=== PATIENT | female | born 1930 | race Caucasian/White ===

== ENCOUNTER 2017-02-11 14:56 | Inpatient (IN) | payer MEDICARE ==
[~2017-02-11] VITALS: Ht 147.3 cm; Wt 63.0 kg
--- NOTE | 2017-02-11 15:30 | NUR ---
Patient transferred to bed 4. RN evaluating patient at bedside.
[2017-02-11 15:35] VITALS: BP 136/99
--- NOTE | 2017-02-11 15:58 | NUR ---
PATIENT BIBA DUE TO SP FALL;PT LANDED ON HER BUTT.C/O RT HIP PAIN;DENIES HITTING HER HEAD/LOC;DENIES N/V/D; SKIN IS PINK/WARM/DRY; AAOX4 WITH EVEN AND STEADY GAIT; LUNGS CLEAR BL; HR EVEN AND REGULAR; PT DENIES ANY FEVER, CP, SOB, OR COUGH AT THIS TIME; PATIENT STATES PAIN OF 8/10 AT THIS TIME;PATIENT POSITIONED FOR COMFORT; HOB ELEVATED; BEDRAILS UP X2; BED DOWN. ALL MONITORS IN PLACED;ER MD MADE AWARE OF PT STATUS.
[2017-02-11] MEDS ORDERED: SYN.075 PO (15:59)
[2017-02-11] MEDS ORDERED: LOVA40TA4 PO (15:59)
[2017-02-11] MEDS ORDERED: MIRT30TA PO (15:59)
[2017-02-11] MEDS ORDERED: [UNRECOGNIZED DRUG - CODE] PO (15:59)
[2017-02-11] MEDS ORDERED: KETOROLAC 30 MG/ML VIAL IVP ONE (16:05)
[2017-02-11] MEDS ORDERED: NACL 0.9% 500 ML IV ONE (16:05)
[2017-02-11 16:38] LABS: HEMATOCRIT 41.5 % (36-48); HEMOGLOBIN 13.5 g/dL (12.0-16.0); MEAN CORPUSCULAR HEMOGLOBIN 29 pg (27-31); MEAN CORPUSCULAR HGB CONC 33 g/dL (33-37); MEAN CORPUSCULAR VOLUME 89 fL (80-94); PLATELET COUNT (AUTO) 259 K/uL (140-450); RED BLOOD CELL COUNT(AUTO) 4.64 MIL/uL (4.20-5.40); RED CELL DISTRIBUTION WIDTH 14.5 % (11.6-13.7)
[2017-02-11 16:51] LABS: ANION GAP 13.3 (8-16); CARBON DIOXIDE 28.6 mmol/L (21-32); CHLORIDE 104 mmol/L (98-107); CREATININE 0.9 mg/dL (0.6-1.3); GLUCOSE 113 mg/dL (74-106); POTASSIUM 3.9 mmol/L (3.5-5.1); SODIUM SERUM 142 mmol/L (136-145); UREA NITROGEN, BLOOD 31 mg/dL (7-18)
[2017-02-11 16:57] LABS: ALBUMIN 3.5 g/dL (3.4-5.0); ASPARTATE AMINOTRANSFERASE 19 U/L (15-37); PROTHROMBIN TIME 10.9 secs (10.8-13.4); TOTAL BILIRUBIN 0.3 mg/dL (0.0-1.0)
--- NOTE | 2017-02-11 17:04 | NUR ---
XRAY AT BEDSIDE.
[2017-02-11 17:13] LABS: LYMPHOCYTES % (MANUAL) 15 % (20-46)
[2017-02-11 17:14] LABS: EOSINOPHILS % (MANUAL) 1 % (0-4); MONOCYTES % (MANUAL) 4 % (5-12)
--- NOTE | 2017-02-11 17:57 | NUR ---
IV GOT INFILTRATED;STOP IVF;TRIED TO START ANOTHER LINE BUT DAUGHTER REFUSES;
--- NOTE | 2017-02-11 18:20 | NUR ---
DAUGHTER DON'T WANT HER MOTHER TO BE ADMITTED HERE IN [facility];PAULINO NURSE STEFFEN TALKED TO DAUGHTER;TALKED TO DR DAILY.
--- NOTE | 2017-02-11 18:27 | NUR ---
DR DAILY AT BEDSIDE.
[2017-02-11] MEDS: NACL 0.9% 1,000 ML IV SCH (18:37)
[2017-02-11] MEDS ORDERED: ONDANSETRON 4 MG/2 ML VIAL IVP PRN (18:40)
[2017-02-11] MEDS ORDERED: HYDROcodone/APAP 7.5/325 MG 1 TAB PO PRN (18:40)
[2017-02-11] MEDS ORDERED: ACETAMINOPHEN 325 MG TAB PO PRN (18:40)
[2017-02-11] MEDS ORDERED: MORPHINE SULFATE 2 MG/ML SYR IVP PRN (18:40)
[2017-02-11 19:18] LABS: CHOL/HDL RATIO 5.2 (1-4.5); FREE T4 (FREE THYROXINE) 0.81 ng/dL (0.76-1.46); PHOSPHORUS 3.8 mg/dL (2.5-4.9); THYROID STIMULATING HORMONE 11.56 uIU/mL (0.34-3.74)
--- NOTE | 2017-02-11 19:21 | NUR ---
Pt report given to ILA ELLIS. Transfer of care at this time.
--- NOTE | 2017-02-11 19:45 | NUR ---
GOT REPORT FROM CALEB, PT. RESTING IN BED, NO S/SX OF DISTRESS AT THIS TIME
--- NOTE | 2017-02-11 19:55 | NUR ---
RECEIVED REPORT FROM ER. PATIENT A&OX1. PATIENT HAS HISTORY OF DEMENTIA, UNABLE TO ANSWER ADMITTING QUESTIONS, DAUGHTER HAS POA. DAUGHTER THOMAS PROVIDED ADMISSION INFORMATION. IV SITE PATENT AND INTACT. SECOND IV SITE INFILTRATED IN ER, IV TAKEN OUT, TIP INTACT. PATIENT ON 3L O2 VIA NC. PATIENT ORIENTED TO UNIT. REINFORCEMENT NEEDED. NO SIGNS OR SYMPTOMS OF ACUTE DISTRESS NOTED. WILL CONTINUE TO MONITOR.
[2017-02-11 20:00] VITALS: BP 149/86
--- NOTE | 2017-02-11 20:01 | NUR ---
Patient will be admitted to care of DR FRITZ. Admited to TELE. Will go to room. Belongings list completed. Report to .
[2017-02-11] MEDS: MIRTAZAPINE 15 MG TAB PO SCH (22:26)
[2017-02-11] MEDS: DOCUSATE SODIUM 100 MG GELCAP PO SCH (22:26)
[2017-02-11] MEDS: DONEPEZIL 10 MG TAB PO SCH (22:27)
[2017-02-11] MEDS ORDERED: MORPHINE SULFATE 4 MG/ML SYR IVP PRN (23:30)
[2017-02-11] MEDS ORDERED: HYDROcodone/APAP 10/325 MG 1 TAB TAB PO PRN (23:30)
--- NOTE | 2017-02-11 23:45 | NUR ---
PATIENT AWAKE IN BED. FLACC 0. PATIENT TWISTING O2 LINES AND PULLING AT IV SITE, WRAPPED IN THIN GAUZE. PATIENT A&OX1. PATIENT NEEDS REINFORCEMENT TO KEEP NASAL CANNULA ON. NO SIGNS OR SYMPTOMS OF ACUTE DISTRESS NOTED. CALL LIGHT WITHIN REACH. WILL CONTINUE TO MONITOR.
[2017-02-12] VITALS: BP 139/74
--- NOTE | 2017-02-12 02:15 | NUR ---
PATIENT RESTING IN BED. FLACC 0. NO SIGNS OR SYMPTOMS OF ACUTE DISTRESS NOTED. WILL CONTINUE TO MONITOR.
[2017-02-12 04:00] VITALS: BP 106/58
--- NOTE | 2017-02-12 05:50 | NUR ---
SPOKE TO DAUGHTER THOMAS ON THE PHONE FOR AN UPDATE ON MOTHERS CONDITION. DAUGHTER WILL BE IN LATER IN THE MORNING.
[2017-02-12] MEDS: LEVOTHYROXINE 0.075 MG TAB PO SCH (06:37)
--- NOTE | 2017-02-12 06:59 | NUR ---
PATIENT HAS BEEN SCREENED AND CATEGORIZED LOW NUTRITION RISK. PATIENT WILL BE SEEN WITHIN 7 DAYS OF ADMISSION. 02/17/17 LUANN MALDONADO MS, RDN Addendum: 02/13/17 at [address] PATIENT HAS BEEN RESCREENED AND RECATEGORIZED MODERATE NUTRITION RISK. PATIENT WILL BE SEEN WITHIN 3-5 DAYS OF ADMISSION. 02/14/17 - 02/16/[address]
--- NOTE | 2017-02-12 07:26 | NUR ---
ENDORSED PLAN OF CARE TO AM RN. PATIENT IN STABLE CONDITION. NO SIGNS OR SYMPTOMS OF ACUTE DISTRESS NOTED. CALL LIGHT WITHIN REACH. SAFETY MEASURES ENSURED.
--- NOTE | 2017-02-12 07:27 | NUR ---
RECEIVED REPORT FROM LINSEED OIL REFINER NURSE. PATIENT IN STABLE CONDITION. NO DISTRESS NOTED. FLACC =0. AAOX1, CALM, COOPERATIVE, SKIN COLOR APPROPRIATE TO ETHNICITY, WARM TO TOUCH. RESPIRATIONS EVEN, UNLABORED, ON ROOM AIR FOR NOW WITH O2 SAT AT 98%. IV SITE INTACT, PATENT, AND INFUSING IVF ORDERS. HAS BUCKS TRACTION IN PLACE ON RIGHT LEG WITH 5 LBS WEIGHT. LUNGS CTA ON ALL LOBES. HAS RED SKIN SPOTS ON B/L UE, BUT IS INTACT. ABDOMEN SOFT, NON-DISTENDED. REVIEWED PLAN OF CARE WITH PATIENT. PATIENT VERBALIZED UNDERSTANDING. SAFETY MEASURES IN PLACE, CALL LIGHT WITHIN REACH, FALL PRECAUTIONS IN PLACE. WILL CONTINUE TO MONITOR.
[2017-02-12 08:00] VITALS: BP 149/87
--- NOTE | 2017-02-12 08:00 | NUR ---
DR. BEAUCHAMP AT BEDSIDE REVIEWING PLAN OF CARE WITH PATIENT AND DAUGHTER AT BEDSIDE. DAUGHTER WISHES TO TRANSFER PATIENT TO [facility] TO PERFORM RIGHT HIP FRACTURE SURGERY. DR. BEAUCHAMP OK WITH DAUGHTER'S WISHES. WILL CONTINUE TO MONITOR.
[2017-02-12 08:38] LABS: BASOPHILS # (AUTO) 0.3 K/uL (0.00-0.22); BASOPHILS % (AUTO) 2.6 % (0.0-2.0); EOSINOPHILS # (AUTO) 0.3 K/uL (0-0.4); EOSINOPHILS % (AUTO) 2.9 % (0.0-4.0); HEMOGLOBIN 12.9 g/dL (12.0-16.0); LYMPHOCYTES # (AUTO) 1.7 K/uL (2.5-16.5); LYMPHOCYTES % (AUTO) 15.5 % (20.5-51.1); MEAN CORPUSCULAR HEMOGLOBIN 30 pg (27-31); MEAN CORPUSCULAR HGB CONC 33 g/dL (33-37); MEAN CORPUSCULAR VOLUME 89 fL (80-94); MONOCYTES # (AUTO) 0.8 K/uL (0.8-1.0); MONOCYTES % (AUTO) 7.1 % (1.7-9.3); NEUTROPHILS # (AUTO) 8.1 K/uL (1.8-7.7); NEUTROPHILS % (AUTO) 71.9 % (42.2-75.2); PLATELET COUNT (AUTO) 209 K/uL (140-450); RED BLOOD CELL COUNT(AUTO) 4.37 MIL/uL (4.20-5.40); RED CELL DISTRIBUTION WIDTH 14.3 % (11.6-13.7); WHITE BLOOD COUNT (AUTO) 11.2 K/uL (4.8-10.8)
[2017-02-12] MEDS: DOCUSATE SODIUM 100 MG GELCAP PO SCH ×2 (09:00→20:38)
[2017-02-12] MEDS ORDERED: NON-FORMULARY ITEM (Memantine HCl (Namenda Xr) 28 MG) PO SCH (09:00)
[2017-02-12] MEDS ORDERED: NON-FORMULARY ITEM (Lovastatin 40 MG) PO SCH (09:00)
[2017-02-12] MEDS: PANTOPRAZOLE 40 MG INJ VIAL IVP SCH (09:07)
[2017-02-12 09:08] LABS: ANION GAP 11.7 (8-16); CARBON DIOXIDE 26.1 mmol/L (21-32); CHLORIDE 104 mmol/L (98-107); CREATININE 0.8 mg/dL (0.6-1.3); GLUCOSE 98 mg/dL (74-106); POTASSIUM 3.8 mmol/L (3.5-5.1); SODIUM SERUM 138 mmol/L (136-145); UREA NITROGEN, BLOOD 23 mg/dL (7-18)
[2017-02-12] MEDS: NACL 0.9% 1,000 ML IV SCH ×2 (09:08→14:37)
--- NOTE | 2017-02-12 09:15 | NUR ---
PATIENT LYING IN BED WITH FAMILY MEMBERS AT BEDSIDE. NO DISTRESS NOTED. FLACC 0. RESPIRATIONS EVEN, UNLABORED, ON ROOM AIR WITH O2 SAT 97%. SCHEDULED MEDICATIONS DUE GIVEN. SAFETY MEASURES IN PLACE, CALL LIGHT WITHIN REACH, BUCKS TRACTION ON RIGHT LEG IN PLACE WITH 5 LBS WEIGHT. WILL CONTINUE TO MONITOR.
[2017-02-12 09:19] LABS: MAGNESIUM 1.9 mg/dL (1.8-2.4); PHOSPHORUS 3.2 mg/dL (2.5-4.9)
--- NOTE | 2017-02-12 10:40 | NUR ---
PATIENT LYING IN BED COMFORTABLE WITH FAMILY MEMBERS AT BEDSIDE. ASSISTED INVOICE CONTROL CLERK TO CLEAN UP PATIENT. SAFETY MEASURES IN PLACE, CALL LIGHT WITHIN REACH, FALL PREVENTIONS IN PLACE. WILL CONTINUE TO MONITOR.
--- NOTE | 2017-02-12 11:00 | NUR ---
DR. FRITZ AT BEDSIDE REVIEWING PLAN OF CARE WITH PATIENT AND DAUGHTER AT BEDSIDE. DAUGHTER CHANGED HER MIND AND WANTS TO PERFORM THE RIGHT HIP SURGERY IN [facility] INSTEAD OF TRANSFERRING PATIENT TO [facility]. MD MADE AWARE. CT SCAN OF PELVIS WITHOUT CONTRAST TO BE SCHEDULED LATER TODAY AND CONSENTS FOR SURGERY TO BE SIGNED BY DAUGHTER LATER TODAY WHEN DAUGHTER RETURNS. SAFETY MEASURES IN PLACE, CALL LIGHT WITHIN REACH. WILL CONTINUE TO MONITOR.
[2017-02-12] MEDS ORDERED: MEMANTINE 10 MG TAB PO SCH (11:30)
[2017-02-12 12:00] VITALS: BP 137/88
--- NOTE | 2017-02-12 12:08 | NUR ---
PATIENT LYING IN BED SLEEPING. AROUSABLE BY VOICE. NO DISTRESS NOTED. RESPIRATIONS EVEN, UNLABORED, ON ROOM AIR WITH O2 SAT AT 96%. WILL CONTINUE TO MONITOR.
--- NOTE | 2017-02-12 13:00 | NUR ---
PATIENT LYING IN BED COMFORTABLY. CONDITION UNCHANGED. NO DISTRESS NOTED. FLACC 0. MEDICATIONS DUE GIVEN. SAFETY MEASURES IN PLACE, CALL LIGHT WITHIN REACH. WILL CONTINUE TO MONITOR.
--- NOTE | 2017-02-12 13:15 | NUR ---
RADIOLOGIST HERE ON UNIT TO TAKE PATIENT FOR A CT SCAN OF PELVIS. DISCONNECTED PATIENT FROM IVF, AND REMOVED 5 LBS WEIGHT ON BUCKS TRACTION FOR CT SCAN. WILL PLACE BACK ON WHEN PATIENT BACK ON UNIT. WILL CONTINUE TO MONITOR.
--- NOTE | 2017-02-12 13:43 | NUR ---
PATIENT BACK FROM CT SCAN. IN STABLE CONDITION. NO DISTRESS NOTED. RECONNECTED PATIENT BACK ON IVF AND BUCKS TRACTION PER MD ORDERS. INSTRUMENTATION ENGINEERING TECHNICIAN ASSISTING PATIENT ON FEEDING FOR LUNCH. SAFETY MEASURES IN PLACE, CALL LIGHT WITHIN REACH, FALL PREVENTIONS IN PLACE. WILL CONTINUE TO MONITOR.
--- NOTE | 2017-02-12 15:05 | NUR ---
PATIENT LYING IN BED SLEEPING. AROUSABLE BY VOICE. FLACC 0. NO DISTRESS NOTED. RESPIRATIONS EVEN, UNLABORED, ON ROOM AIR. CONDITION UNCHANGED. ASSISTED CHOPPER OPERATOR ON CLEANING PATIENT AND REPOSITIONING. SAFETY MEASURES IN PLACE, CALL LIGHT WITHIN REACH, FALL PREVENTIONS IN PLACE, RUBALCAVA'S TRACTION IN PLACE, IV SITE INTACT, PATENT AND INFUSING. WILL CONTINUE TO MONITOR.
[2017-02-12 16:00] VITALS: BP 130/81
--- NOTE | 2017-02-12 16:30 | NUR ---
PATIENT SITTING IN BED WATCHING TV. NO DISTRESS NOTED. RESPIRATIONS EVEN, UNLABORED ON ROOM AIR. FLACC 0. SAGASTUME CATHETER INSERTED PER MD ORDERS. ASSISTED HYDROCRANE OPERATOR CLEAN UP AND REPOSITION PATIENT. PATIENT TOLERATED PROCEDURE WELL. SAFETY MEASURES IN PLACE, CALL LIGHT WITHIN REACH, SAGASTUME CATHETER DRAINING CLOUDY, ODOROUS URINE, BUCKS TRACTION IN PLACE. WILL CONTINUE TO MONITOR.
[2017-02-12 17:41] LABS: APPEARANCE,URINE SL CLOUDY (CLEAR); BILIRUBIN,URINE NEGATIVE (NEGATIVE); BLOOD, URINE 3+ (NEGATIVE); COLOR,URINE YELLOW (YELLOW); LEUKOCYTE ESTERASE ,URINE 3+ (NEGATIVE); NITRITE, URINE NEGATIVE (NEGATIVE); PH,URINE 6.5 (5.0-9.0); UGLUCOSE NEGATIVE (NEGATIVE)
[2017-02-12 17:50] LABS: RBC,URINE 11-20 (MOD) /HPF (0-5); URINE AMORPHOUS URATE 1+ /HPF (None Seen); WBC,URINE 20-60 /HPF (0-5)
--- NOTE | 2017-02-12 18:00 | NUR ---
PATIENT LYING IN BED SLEEPING. NO DISTRESS NOTED. CONDITION UNCHANGED. RESPIRATIONS EVEN, UNLABORED ON ROOM AIR. SAFETY MEASURES IN PLACE, CALL LIGHT WITHIN REACH. WILL CONTINUE TO MONITOR.
--- NOTE | 2017-02-12 19:30 | NUR ---
GAVE REPORT TO POWER SYSTEM DISPATCHER NURSE FOR CONTINUITY OF CARE. PATIENT IN STABLE CONDITION.
--- NOTE | 2017-02-12 19:31 | NUR ---
RECEIVED HANDOFF REPORT FROM AM RN. PATIENT A&OX1. PATIENT IV SITE PATENT AND INTACT. FLACC 0. SAGASTUME CATHETER PATENT AND INTACT. URINE STRAW COLORED AND CLEAR. 600ML NOTED. NO SIGNS OR SYMPTOMS OF ACUTE DISTRESS NOTED. SAFETY MEASURES ENSURED. WILL CONTINUE TO MONITOR.
[2017-02-12 20:00] VITALS: BP 130/89
[2017-02-12] MEDS: MEMANTINE 10 MG TAB PO SCH (20:48)
[2017-02-12] MEDS: SIMVASTATIN 20 MG TAB PO SCH (20:49)
[2017-02-12] MEDS: MIRTAZAPINE 15 MG TAB PO SCH (20:49)
[2017-02-12] MEDS: DONEPEZIL 10 MG TAB PO SCH (20:49)
--- NOTE | 2017-02-12 20:57 | NUR ---
PM MEDS GIVEN WITH EDUCATION. PATIENT TOLERATED WELL IN APPLESAUCE. FLACC 0. REINFORCEMENT NEEDED FOR TEACHING. NO SIGNS OR SYMPTOMS OF ACUTE DISTRESS NOTED. WILL CONTINUE TO MONITOR.
[2017-02-13] VITALS (10 sets, daily range): BP systolic 122–152; BP diastolic 67–97
--- NOTE | 2017-02-13 00:17 | NUR ---
PATIENT RESTING IN BED. FLACC 0. NO SIGNS OR SYMPTOMS OF ACUTE DISTRESS NOTED. SAFETY MEASURES ENSURED. WILL CONTINUE TO MONITOR.
--- NOTE | 2017-02-13 04:31 | NUR ---
PATIENT RESTING IN BED. NO SIGNS OR SYMPTOMS OF ACUTE DISTRESS NOTED. FLACC 0. SAFETY MEASURES ENSURED. WILL CONTINUE TO MONITOR.
--- NOTE | 2017-02-13 05:41 | NUR ---
SPOKE WITH DAUGHTER REGARDING TIME OF SURGERY. TIME IS STILL UNKNOWN , SHE WILL COME TO SIGN DNR FORM PRIOR TO SURGERY.
[2017-02-13] MEDS: LEVOTHYROXINE 0.075 MG TAB PO SCH (06:43)
[2017-02-13 06:50] LABS: BASOPHILS # (AUTO) 0.3 K/uL (0.00-0.22); BASOPHILS % (AUTO) 2.4 % (0.0-2.0); EOSINOPHILS # (AUTO) 0.3 K/uL (0-0.4); EOSINOPHILS % (AUTO) 2.6 % (0.0-4.0); HEMATOCRIT 39.5 % (36-48); LYMPHOCYTES # (AUTO) 1.7 K/uL (2.5-16.5); LYMPHOCYTES % (AUTO) 14.6 % (20.5-51.1); MEAN CORPUSCULAR HEMOGLOBIN 30 pg (27-31); MEAN CORPUSCULAR HGB CONC 33 g/dL (33-37); MEAN CORPUSCULAR VOLUME 89 fL (80-94); MONOCYTES % (AUTO) 8.7 % (1.7-9.3); NEUTROPHILS # (AUTO) 8.3 K/uL (1.8-7.7); NEUTROPHILS % (AUTO) 71.7 % (42.2-75.2); PLATELET COUNT (AUTO) 194 K/uL (140-450); RED BLOOD CELL COUNT(AUTO) 4.41 MIL/uL (4.20-5.40); RED CELL DISTRIBUTION WIDTH 14.3 % (11.6-13.7); WHITE BLOOD COUNT (AUTO) 11.6 K/uL (4.8-10.8)
[2017-02-13 07:19] LABS: ANION GAP 8.7 (8-16); CHLORIDE 105 mmol/L (98-107); CREATININE 0.9 mg/dL (0.6-1.3); GLUCOSE 103 mg/dL (74-106); POTASSIUM 3.7 mmol/L (3.5-5.1); SODIUM SERUM 138 mmol/L (136-145); UREA NITROGEN, BLOOD 16 mg/dL (7-18)
[2017-02-13 07:23] LABS: MAGNESIUM 1.9 mg/dL (1.8-2.4); PHOSPHORUS 3.7 mg/dL (2.5-4.9)
--- NOTE | 2017-02-13 07:41 | NUR ---
ENDORSED PLAN OF CARE TO AM RN. PATIENT IN STABLE CONDITION. NO SIGNS OR SYMPTOMS OF ACUTE DISTRESS NOTED. SAFETY MEASURES ENSURED.
--- NOTE | 2017-02-13 07:42 | NUR ---
RECEIVED REPORT FROM THE LOGISTICS LOSS PREVENTION MANAGER NURSE AT BEDSIDE FOR CONTINUITY OF CARE. PT IS AWAKE AND ORIENTED X 2. INTRODUCED MYSELF AND UPDATED THE BOARD. PT IS IS TO HAVE SURGERY. FINISHED THE OR PREOP CHECK LIST. V/S WITHIN NORMAL RANGE. DENIES PAIN. IV ON L FA 20G NS AT 50ML. SITE WRAPPED IN KERLIX. PT HAS RUBALCAVA'S TRACTION -5LBS. SKIN INTACT. PT IS AWARE SHE IS HAVING PROCEDURE DONE TODAY. DAUGHTER IS HERE. SIGNED POLST. THEY ARE HERE AT PT'S BEDSIDE. SCD IN PLACE ON L LEG, SAGASTUME CATH IN PLACCE W/ 100ML ESTELLE URINE IN BAG. WILL CONTINUE TO MONITOR PT.
[2017-02-13] MEDS: DOCUSATE SODIUM 100 MG GELCAP PO SCH ×2 (08:44→20:43)
[2017-02-13] MEDS: CALCIUM CARB/VIT-D 500 MG/200 IU 1 TAB PO SCH (08:44)
[2017-02-13] MEDS: MEMANTINE 10 MG TAB PO SCH ×2 (08:44→20:43)
[2017-02-13] MEDS: BACLOFEN 10 MG TAB PO SCH ×3 (09:00→16:50)
[2017-02-13] MEDS: PANTOPRAZOLE 40 MG INJ VIAL IVP SCH (09:25)
[2017-02-13] MEDS: NACL 0.9% 1,000 ML IV SCH ×2 (09:28→14:05)
--- NOTE | 2017-02-13 09:30 | NUR ---
HELD ALL MORNING MEDS. NPO FOR SURGERY. ADMINISTERED PROTONIX AND CHANGED NEW IVF. PT SLEEPING. FAMILY AT BEDSIDE WAITING FOR SURGERY. WILL CONTINUE TO MONITOR PT.
[2017-02-13] MEDS ORDERED: ROCURONIUM 50 MG/5 ML VIAL IV ONE (10:09)
[2017-02-13] MEDS ORDERED: ONDANSETRON 4 MG/2 ML VIAL IVP ONE (10:09)
[2017-02-13] MEDS ORDERED: PHENYLEPHRINE 10 MG/ML VIAL IV ONE (10:09)
[2017-02-13] MEDS ORDERED: DESFLURANE 240 ML BTL INH ONE (10:09)
[2017-02-13] MEDS ORDERED: KETOROLAC 30 MG/ML VIAL IVP ONE (10:09)
[2017-02-13] MEDS ORDERED: PROPOFOL 200 MG/20 ML VIAL IV ONE (10:09)
[2017-02-13] MEDS ORDERED: GLYCOPYRROLATE 0.2 MG/ML VIAL IV ONE (10:09)
[2017-02-13] MEDS ORDERED: DEXAMETHASONE 4 MG/ML VIAL IVP ONE (10:09)
--- NOTE | 2017-02-13 11:47 | NUR ---
CALLED OR SCHEDULING. ASKED ABOUT HER SURGERY TIME. 12:30PM. NOTIFIED FAMILY. FAMILY AT BEDSIDE. PT DENIES PAIN AT THIS TIME. WILL CONTINUE TO MONITOR PT.
--- NOTE | 2017-02-13 12:05 | NUR ---
OR NURSES HERE TO TAKE PT TO OR FOR PROCEDURE. FAMILY WENT TO OR WAITING ROOM. REMOVED GLASSES AND PUT THEM IN THE SIDE DRESSER DRAWER. FAMILY AWARE. WILL AWAIT PT'S RETURN.
[2017-02-13] MEDS ORDERED: ceFAZolin 1,000 MG VIAL ONE ×2 (12:38→13:53)
[2017-02-13] MEDS ORDERED: BUPIVACAINE-MPF 0.25% 30 ML VIAL INJ ONE (12:39)
[2017-02-13] MEDS ORDERED: fentaNYL 0.05 MG/ML VIAL ONE (12:45)
[2017-02-13] MEDS ORDERED: ONDANSETRON 4 MG/2 ML VIAL IVP PRN (13:05)
[2017-02-13] MEDS ORDERED: MORPHINE SULFATE 2 MG/ML SYR IVP PRN (13:45)
[2017-02-13] MEDS ORDERED: AMMONIA AROMATIC 1 INHL INH ONE (14:06)
--- NOTE | 2017-02-13 14:20 | NUR ---
CM NOTE INITIAL REVIEW FAXED TO [facility] / FAX# [phone], ATTN: YAN # [phone]
--- NOTE | 2017-02-13 14:35 | NUR ---
PT ARRIVED BACK ON THE UNIT WITH 2 ER NURSES. PT IS STILL VERY DROWSY. V/S WITHIN NORMAL RANGE. ADMINISTERED NC O2 3L. NS IV INFUSING @ 50ML. DENIES PAIN. NOTED THE BANDAGE ON R THIGH/HIP. NO MORE TRACTION. WILL CONTINUE TO MONITOR PT.
--- NOTE | 2017-02-13 17:54 | NUR ---
WITH AROUSAL, PT IS MORE AWAKE AND ORIENTED. DINNER IS HERE. WILL TRY TO GET PT TO EAT SOME DINNER.
--- NOTE | 2017-02-13 19:20 | NUR ---
ENDORSED PT TO THE MAINTENANCE SPECIALIST NURSE. PT IN STABLE CONDITION.
--- NOTE | 2017-02-13 19:25 | NUR ---
RECEIVED FROM AM RN IN BED AWAKE AND ALERT. ON SITTING UP POSITION. S/P HIP ORIFF. DRESSING INTACT. NO BLEEDING. BED ALARM ON. CALL LIGHT WITH IN REACH AND MADE SURE SHE HAS IT. PT. IN ROOM WHERE EASY VISIBILTY TO NSG. OFFICE . NOTED WITH CONFUSION RT DEMENTIA. NEEDS WILL BE ANTICIPATED AND WILL BE MET. TOTAL CARE.
[2017-02-13] MEDS: DONEPEZIL 10 MG TAB PO SCH (20:43)
[2017-02-13] MEDS: MIRTAZAPINE 15 MG TAB PO SCH (20:43)
[2017-02-13] MEDS: SIMVASTATIN 20 MG TAB PO SCH (20:44)
[2017-02-14 00:33] VITALS: BP 110/58
--- NOTE | 2017-02-14 00:35 | NUR ---
PT. VITAL SIGNS TAKEN AND NO COMPLAINTS OF ANY PAIN. ABLE TO WAKE UP EASILY WHEN TOUCHED. PT. DENIES ANY PAIN. WENT BACK TO SLEEP. MADE SURE CALL LIGHT WITH IN REACH. AFEBRILE. DRESSING TO ORIFF INTACT AND NO BLEEDING NOTED.
--- NOTE | 2017-02-14 02:33 | NUR ---
SLEEPING WELL. NO BLEEDING TO ORIF SITE. TELEMETRY MONITORING. CALL LIGHT WITH IN REACH.
--- NOTE | 2017-02-14 04:10 | NUR ---
SLEEPING. NO SOB. NO NOTED RESTLESSNESS. FLACC 0-. IVF SITE INTACT AND NO INFILTRATION . TELEMETRY MONITORING.
[2017-02-14 04:31] VITALS: BP 117/73
[2017-02-14] MEDS: LEVOTHYROXINE 0.075 MG TAB PO SCH (06:12)
[2017-02-14] MEDS: NACL 0.9% 1,000 ML IV SCH ×2 (06:13→14:28)
[2017-02-14 06:19] LABS: BASOPHILS # (AUTO) 0.1 K/uL (0.00-0.22); BASOPHILS % (AUTO) 0.8 % (0.0-2.0); EOSINOPHILS # (AUTO) 0.1 K/uL (0-0.4); EOSINOPHILS % (AUTO) 0.8 % (0.0-4.0); HEMATOCRIT 35.4 % (36-48); HEMOGLOBIN 11.8 g/dL (12.0-16.0); LYMPHOCYTES # (AUTO) 1.4 K/uL (2.5-16.5); LYMPHOCYTES % (AUTO) 9.4 % (20.5-51.1); MEAN CORPUSCULAR HEMOGLOBIN 30 pg (27-31); MEAN CORPUSCULAR HGB CONC 33 g/dL (33-37); MEAN CORPUSCULAR VOLUME 89 fL (80-94); MONOCYTES # (AUTO) 1.4 K/uL (0.8-1.0); MONOCYTES % (AUTO) 9.2 % (1.7-9.3); NEUTROPHILS # (AUTO) 12.4 K/uL (1.8-7.7); NEUTROPHILS % (AUTO) 79.8 % (42.2-75.2); PLATELET COUNT (AUTO) 212 K/uL (140-450); RED BLOOD CELL COUNT(AUTO) 3.99 MIL/uL (4.20-5.40); RED CELL DISTRIBUTION WIDTH 13.9 % (11.6-13.7); WHITE BLOOD COUNT (AUTO) 15.4 K/uL (4.8-10.8)
[2017-02-14 06:43] LABS: CARBON DIOXIDE 28.4 mmol/L (21-32); CHLORIDE 106 mmol/L (98-107); GLUCOSE 122 mg/dL (74-106); POTASSIUM 4.4 mmol/L (3.5-5.1); SODIUM SERUM 140 mmol/L (136-145); UREA NITROGEN, BLOOD 21 mg/dL (7-18)
--- NOTE | 2017-02-14 06:43 | NUR ---
SLEPT WELL THIS SHIFT. NEEDS ANTICIPATED AND MET. TOTAL CARE. PT. ABLE TO WAKE UP WHEN TOUCHED . NO COMPLAINT OF PAIN THIS SHIFT. ORIF RIGHT UPPER THIGH DRESSING INTACT AND NO BLEEDING. TELEMETRY MONITORING.
[2017-02-14 06:54] LABS: PHOSPHORUS 3.9 mg/dL (2.5-4.9)
--- NOTE | 2017-02-14 07:20 | NUR ---
RECEIVED REPORT FROM THE LACROSSE PLAYER NURSE AT BEDSIDE FOR CONTINUITY OF CARE. PT SLEEPING. UPDATED THE BOARD. SAGASTUME CATH IN PLACE. 100ML YELLOW URINE IN BAG. IV ON L FA 20G NS AT 50ML INFUSING. SURGICAL DRESSING ON R THIGH/HIP. NC ON 2L O2. V/S WITHIN NORMAL RANGE. 96% O2 SAT. MD'S ROUNDED. PLAN FOR TODAY. D/C SAGASTUME CATH AND P/T. WILL CONTINUE TO MONITOR PT.
[2017-02-14 08:00] VITALS: BP 125/61
--- NOTE | 2017-02-14 08:00 | NUR ---
WOKE UP PT AND SAT HER UP TO EAT BREAKFAST. PT IS AWAKE. FEEDING HERSELF. WILL CONTINUE TO MONITOR PT.
[2017-02-14] MEDS: PANTOPRAZOLE 40 MG INJ VIAL IVP SCH (08:29)
[2017-02-14] MEDS: BACLOFEN 10 MG TAB PO SCH ×3 (08:30→17:02)
[2017-02-14] MEDS: CALCIUM CARB/VIT-D 500 MG/200 IU 1 TAB PO SCH (08:30)
[2017-02-14] MEDS: MEMANTINE 10 MG TAB PO SCH ×2 (08:30→20:33)
[2017-02-14] MEDS: DOCUSATE SODIUM 100 MG GELCAP PO SCH ×2 (08:30→20:33)
--- NOTE | 2017-02-14 08:43 | NUR ---
ADMINISTERED MORNING MEDS. CRUSHED IN APPLE SAUCE. PT TOLERATED WELL. HELD COLACE. PER NIGHTSHIFT NURSE PT HAD LOOSE STOOLS. WILL CONTINUE TO MONITOR PT.
--- NOTE | 2017-02-14 09:30 | NUR ---
P/T HERE FOR THERAPY. FIRST TIME GETTING UP AFTER SURGERY. PT TOLERATED WELL. AFTERWARDS, SAT PT IN CHAIR NEXT TO BED. DENIES PAIN. NO SIGNS OF DISTRESS. WILL CONTINUE TO MONITOR PT.
--- NOTE | 2017-02-14 11:16 | NUR ---
FAMILY IS HERE. WANTED TO SPEAK TO GILDARDO, ADJUNCT PHYSICAL EDUCATION INSTRUCTOR. CALLED AND REQUESTED GILDARDO TO COME TO THE ROOM AND SPEAK TO FAMILY. NOTIFIED FAMILY THAT SHE IS COMING SOON. PT BACK IN BED. NO SIGNS OF DISCOMFORT. WILL CONTINUE TO MONITOR PT.
[2017-02-14 12:00] VITALS: BP 112/54
--- NOTE | 2017-02-14 12:23 | NUR ---
SPOKE WITH EMILY FROM [facility]. SHE SAID THE DAUGHTER, THOMAS , WANTED [facility] . I CALLED YAN FROM [facility]. SHE SAID THEY ARE NOT CONTRACTED WITH [facility]. I CALLED EMILY AND INFORMED HER. THE DAUGHTER THOMAS AND HER HUISBAND WAS IN THE PATIENT'S ROOM. I INFORMED THEM THAT [facility] IS NOT CONTRACTED WITH [facility]. I GAVE THE DAUGHTER THE LIST OF SNF'S CONTRACTED WITH [facility].
--- NOTE | 2017-02-14 13:06 | NUR ---
ADMINISTERED MED CRUSHED W/ APPLE SAUCE. PT IS EATING LUNCH. NO SIGNS OF DISTRESS. WILL CONTINUE TO MONITOR PT.
--- NOTE | 2017-02-14 15:16 | NUR ---
FAXED [facility]CURRENT REVIEW TO [facility] [phone] PHONE YAN [phone]
[2017-02-14 16:00] VITALS: BP 117/53
--- NOTE | 2017-02-14 17:14 | NUR ---
ADMINISTERED ROCEPHIN AND BACLOFEN, CRUSHED AND MIXED IN APPLE SAUCE. PT TOLERATED WELL. PT IS MORE CONFUSED NOW. TALKING ABOUT HER DAD, " HE'LL BE COMING." STARTED MUMBLING ABOUT SOMETHING AND STARTED TO CRY. WILL CONTINUE TO MONITOR PT.
--- NOTE | 2017-02-14 17:50 | NUR ---
D/C SAAGSTUME CATH. ABOUT 150ML OF YELLOW/ESTELLE URINE IN BAG. PT TOLERATED WELL. DINNER IS HERE. WILL CONTINUE TO MONITOR PT.
--- NOTE | 2017-02-14 19:25 | NUR ---
ENDORSED PT TO THE MANAGER PHP NURSE AT BEDSIDE FOR CONTINUITY OF CARE. PT IN STABLE CONDITION.
--- NOTE | 2017-02-14 19:30 | NUR ---
RECEIVED REPORT FROM AM NURSE. PT RESTING IN BED, AOX1, CONFUSED AND FORGETFUL AT TIMES, AMBULATES WITH PT, ABLE TO VERBALIZE NEEDS. FIRE LIEUTENANT IN PLACE. PT DENIES CHEST PAIN, SOB OR S/S OF ACUTE DISTRESS. S/P R HIP ORIF, DRESSING TO RIGHT HIP CLEAN DRY AND INTACT. SCDs IN PLACE. IV ACCESS ASYMPTOMATIC, PATENT AND INTACT. IVF INFUSING WELL. DISCUSSED AND REVIEWED PLAN OF CARE WITH PT, WILL CONTINUE WITH CONSTANT REINFORCEMENT. ALL NEEDS MET. SAFETY MEASURES ENSURED. CALL LIGHT WITHIN REACH. WILL CONTINUE TO MONITOR.
[2017-02-14 20:00] VITALS: BP 120/86
[2017-02-14] MEDS: DONEPEZIL 10 MG TAB PO SCH (20:32)
[2017-02-14] MEDS: SIMVASTATIN 20 MG TAB PO SCH (20:34)
[2017-02-14] MEDS: MIRTAZAPINE 15 MG TAB PO SCH (20:34)
--- NOTE | 2017-02-14 20:35 | NUR ---
ADMINISTERED DUE MEDS WITH EDUCATION, PT STATED "OK," WILL CONTINUE TO REINFORCE TEACHING, TOLERATED MEDS WELL. ALL NEEDS MET. IVF INFUSING WELL. SAFETY MEASURES ENSURED. CALL LIGHT WITHIN REACH. WILL CONTINUE TO MONITOR.
--- NOTE | 2017-02-14 23:45 | NUR ---
PT SLEEPING COMFORTABLY, NO S/S OF ACUTE DISTRESS, SPO2 94% AT ROOM AIR, RR 20 EVEN AND UNLABORED. ALL NEEDS MET. IVF INFUSING WELL. SAFETY MEASURES ENSURED. CALL LIGHT WITHIN REACH. WILL CONTINUE TO MONITOR.
[2017-02-15] VITALS: BP 131/61
[2017-02-15 04:00] VITALS: BP 107/61
--- NOTE | 2017-02-15 04:00 | NUR ---
PT SLEEPING COMFORTABLY IN BED, NO S/S OF ACUTE DISTRESS. SPO2 92% AT ROOM AIR, RR 16 EVEN AND UNLABORED; PT PUT ON O2 2L NC, SPO2 94%. PT CLEANED, TURNED AND REPOSITIONED, OFFLOADED PRESSURE AREAS BY CNAs. PT TOLERATED WELL. ALL NEEDS MET. IVF INFUSING WELL. SAFETY MEASURES ENSURED. CALL LIGHT WITHIN REACH. WILL CONTINUE TO MONITOR.
[2017-02-15 06:01] LABS: BASOPHILS # (AUTO) 0.1 K/uL (0.00-0.22); BASOPHILS % (AUTO) 1.1 % (0.0-2.0); EOSINOPHILS # (AUTO) 0.5 K/uL (0-0.4); EOSINOPHILS % (AUTO) 4.6 % (0.0-4.0); HEMATOCRIT 33.3 % (36-48); HEMOGLOBIN 10.4 g/dL (12.0-16.0); LYMPHOCYTES # (AUTO) 1.7 K/uL (2.5-16.5); LYMPHOCYTES % (AUTO) 14.9 % (20.5-51.1); MEAN CORPUSCULAR HEMOGLOBIN 28 pg (27-31); MEAN CORPUSCULAR HGB CONC 31 g/dL (33-37); MEAN CORPUSCULAR VOLUME 90 fL (80-94); MONOCYTES # (AUTO) 1.1 K/uL (0.8-1.0); MONOCYTES % (AUTO) 9.5 % (1.7-9.3); NEUTROPHILS # (AUTO) 8.2 K/uL (1.8-7.7); NEUTROPHILS % (AUTO) 69.9 % (42.2-75.2); PLATELET COUNT (AUTO) 206 K/uL (140-450); RED BLOOD CELL COUNT(AUTO) 3.69 MIL/uL (4.20-5.40); RED CELL DISTRIBUTION WIDTH 14.6 % (11.6-13.7); WHITE BLOOD COUNT (AUTO) 11.6 K/uL (4.8-10.8)
[2017-02-15 06:15] LABS: ANION GAP 8.3 (8-16); CARBON DIOXIDE 31.3 mmol/L (21-32); CHLORIDE 107 mmol/L (98-107); CREATININE 0.9 mg/dL (0.6-1.3); GLUCOSE 103 mg/dL (74-106); POTASSIUM 3.6 mmol/L (3.5-5.1); SODIUM SERUM 143 mmol/L (136-145); UREA NITROGEN, BLOOD 22 mg/dL (7-18)
[2017-02-15 06:19] LABS: MAGNESIUM 1.8 mg/dL (1.8-2.4); PHOSPHORUS 2.3 mg/dL (2.5-4.9)
[2017-02-15] MEDS: LEVOTHYROXINE 0.075 MG TAB PO SCH (06:59)
--- NOTE | 2017-02-15 07:20 | NUR ---
ENDORSED PLAN OF CARE TO AM NURSE. CONDITION STABLE.
--- NOTE | 2017-02-15 07:21 | NUR ---
RECEIVED REPROT FROM NIGHT RN, PT LAYING SUPINE IN BED ON RA, PT A/OX1 TO NAME ONLY, PT DENIES ANY PAIN, NO S/S OF ACUTE DISTRESS, IV PATENT AND INTACT, PT VERBALIZES UNDERSTANDING OF PLAN OF CARE, SURGICAL WOUND DRY AND INTACT, SAFETY PRECAUTIONS TAKEN, CALL LIGHT WITHIN REACH, WILL CONT TO MONITOR.
[2017-02-15 08:00] VITALS: BP 145/75
[2017-02-15] MEDS: PANTOPRAZOLE 40 MG INJ VIAL IVP SCH (09:06)
[2017-02-15] MEDS: MEMANTINE 10 MG TAB PO SCH (09:07)
[2017-02-15] MEDS: DOCUSATE SODIUM 100 MG GELCAP PO SCH (09:07)
[2017-02-15] MEDS: CALCIUM CARB/VIT-D 500 MG/200 IU 1 TAB PO SCH (09:07)
[2017-02-15] MEDS: BACLOFEN 10 MG TAB PO SCH ×2 (09:08→13:00)
--- NOTE | 2017-02-15 09:21 | NUR ---
PT REFUSED MEDICATIONS, WILL CONT TO MONITOR.
--- NOTE | 2017-02-15 09:24 | NUR ---
SPOKE WITH DAUGHTER, THOMAS. SHE SAID FOR SNF FOR HER MOTHER, SHE WANTED [facility] AND [facility]. FAXED IN [place]RE[place] TO BOTH.
[2017-02-15] MEDS ORDERED: HEPA500056 SUBQ (10:10)
[2017-02-15] MEDS ORDERED: CALC-846 PO (10:10)
[2017-02-15] MEDS ORDERED: SIMV20TA6 PO (10:10)
[2017-02-15] MEDS ORDERED: ACET-1182 PO (10:10)
[2017-02-15] MEDS ORDERED: BACL10TA4 PO (10:10)
[2017-02-15] MEDS ORDERED: DONE10TA10 PO (10:10)
[2017-02-15] MEDS ORDERED: DOCU-299 PO (10:10)
[2017-02-15 11:13] VITALS: BP 145/75
--- NOTE | 2017-02-15 11:58 | NUR ---
RECEIVED A CALL EARLIER FROM SATISH FROM [facility]. NO FEMALE BEDS TODAY. RECEIVED A CALL FROM PAULA FROM [facility]. THEY HAVE A BED FOR HER. ROOM [address] UNDER DR. HENDERSON AFTER 3P.M. I CALLED THE DAUGHTER ,THOMAS, AND SHE WANTS TO SPEAK WITH THE DOCTOR. SHE SAID SHE WOULD BE IN TO SPEAK THE THE DOCTOR. PHONE [facility], . DAUGHTER WANTS TO SPEAK WITH MARQUIS FROM [facility]. I CALLED [facility] AND SPOKE WITH APULA. SHE SAID THAT MARQUIS WAS WITH A FAMILY BUT SHE WOULD CALL THE DAUGHTER.
[2017-02-15 12:00] VITALS: BP 123/54
--- NOTE | 2017-02-15 12:39 | NUR ---
SET UP [facility] FOR 3:30P.M. [place] [facility] [phone]. SPOKE WITH THE DAUGHTER THOMAS. GAVE HER THE NAME AND ADDRESS AND PHONE TO [employer]. TOLD HE THE PATIENT WILL GO TO ROOM 114A UNDER DR. HENDERSON AND THE OPERATING MANAGER WILL BE 3:30P.M. SHE SAID SHE HAD A CALL FROM [employer], PAULA, BUT HER PHONE WAS OFF. SHE WILL CALL PAULA BACK.
--- NOTE | 2017-02-15 13:29 | NUR ---
REPORT GIVEN TO ILA LIU AT [facility].
--- NOTE | 2017-02-15 13:34 | NUR ---
CALLED [facility]. AUTH FROM [facility] [place] [facility] [place] [id number] . PAULA FROM ADMITTING AWARE OF AUTH.
--- NOTE | 2017-02-15 15:49 | NUR ---
REPORT GIVEN TO [facility], PT BEING TRANSFERRED TO FACILITY, IV TAKEN OUT AND TIP INTACT, PT IN STABLE CONDITION
== END 2017-02-15 15:54 | DRG 480 ==
LOC: MED 14:56 → MTU 18:44
PROVIDERS: ADMIT Family Medicine; ATTEND Family Medicine
PROC: 0QH604Z Insertion of Internal Fixation Device into Right Upper Femur, Open Approach (ICD-10-PCS; principal; 2017-02-13 12:30)
DX: M84.451A Pathological fracture, right femur, initial encounter for fracture (principal); N17.0 Acute kidney failure with tubular necrosis; I50.9 Heart failure, unspecified; E03.9 Hypothyroidism, unspecified; E78.5 Hyperlipidemia, unspecified; E83.51 Hypocalcemia; F03.90 Unspecified dementia, unspecified severity, without behavioral disturbance, psychotic disturbance, mood disturbance, and anxiety; F41.9 Anxiety disorder, unspecified; Z96.651 Presence of right artificial knee joint; D72.829 Elevated white blood cell count, unspecified; F32.9 Major depressive disorder, single episode, unspecified; E66.3 Overweight; Z68.29 Body mass index [BMI] 29.0-29.9, adult; Z90.49 Acquired absence of other specified parts of digestive tract; Z79.899 Other long term (current) drug therapy; Z88.6 Allergy status to analgesic agent
CPT/HCPCS: 36415; 71010; 72170; 72192; 73502; 80048; 80053; 81001; 82140; 82150; 82948; 83036; 83605; 83690; 83735; 83880; 84100; 84439; 84443; 84484; 85025; 85610; 85730; 86886; 86900; 86901; 87040; 87081; 87086; 87186; 93005; 93308; 93925; 93970; 96361; 96374; 97110; 97116; 97140; 97530; 99285; C1713; C9113; J0690; J0696; J1100; J1644; J1885; J2370; J2405; J2704; J3010; J3490; J7030; J7060; Q0092